=== PATIENT | female | born 1990 | race Caucasian/White ===

== ENCOUNTER → 2024-02-09 09:14 | Outpatient (REF) | payer BC, SELFPAY | LOC: PNTC 09:14 | PROVIDERS: ATTENDING PHYSICIAN Advanced Practice Midwife | DX: O09.529 Supervision of elderly multigravida, unspecified trimester (principal) | CPT/HCPCS: 76811 ==

== ENCOUNTER → 2024-04-05 09:24 | Outpatient (REF) | payer BC, SELFPAY | LOC: PNTC 09:24 | PROVIDERS: ATTENDING PHYSICIAN Obstetrics & Gynecology | DX: O09.519 Supervision of elderly primigravida, unspecified trimester (principal) | CPT/HCPCS: 76816 ==

== ENCOUNTER → 2024-04-12 09:18 | Outpatient (REF) | payer BC, SELFPAY ==
--- NOTE | 2024-04-12 10:21 | PN.DIAED06 ---
Meal Plan - Gestational
- Breakfast
Gestational Diabetes Meal Plan Name: 1800 calories
Breakfast - Total Carbohydrate (grams): 30
Breakfast - Starch Carbohydrate: 1
Breakfast - Fruit Carbohydrate: 0
Breakfast - Milk Carbohydrate: 1
Breakfast - Nonstarchy Vegetables: Yes
Breakfast - Meat/Protein: 1
Breakfast - Fat: 2
- Morning Snack
Morning Snack - Total Carbohydrate (grams): 30
Morning Snack - Starch Carbohydrate: 1
Morning Snack - Fruit Carbohydrate: 0
Morning Snack - Milk Carbohydrate: 1
Morning Snack - Nonstarchy Vegetables: Yes
Morning Snack - Meat/Protein: 0.5
Morning Snack - Fat: 0
- Lunch
Lunch - Total Carbohydrate (grams): 45
Lunch - Starch Carbohydrate: 2
Lunch - Fruit Carbohydrate: 1
Lunch - Milk Carbohydrate: 0
Lunch - Nonstarchy Vegetables: Yes
Lunch - Meat/Protein: 2
Lunch - Fat: 1
- Afternoon Snack
Afternoon Snack - Total Carbohydrate (grams): 30
Afternoon Snack - Starch Carbohydrate: 1
Afternoon Snack - Fruit Carbohydrate: 1
Afternoon Snack - Milk Carbohydrate: 0
Afternoon Snack - Nonstarchy Vegetables: Yes
Afternoon Snack - Meat/Protein: 1
Afternoon Snack - Fat: 0
- Dinner
Dinner - Total Carbohydrate (grams): 45
Dinner - Starch Carbohydrate: 2
Dinner - Fruit Carbohydrate: 0
Dinner - Milk Carbohydrate: 1
Dinner - Nonstarchy Vegetables: Yes
Dinner - Meat/Protein: 2
Dinner - Fat: 2
- Evening Snack
Evening Snack - Total Carbohydrate (grams): 30
Evening Snack - Starch Carbohydrate: 1
Evening Snack - Fruit Carbohydrate: 0
Evening Snack - Milk Carbohydrate: 1
Evening Snack - Nonstarchy Vegetables: Yes
Evening Snack - Meat/Protein: 1
Evening Snack - Fat: 1
--- NOTE | 2024-04-12 10:51 | PN.DIAED02 ---
Referral
Referred For: Gestational Diabetes Self-Management Training
PHI Release Authorization Form Signed: Yes
Care Plan
- Education Needs
Patient Education Needs: Preconception care//gestational diabetes management
Recommended Diabetes Training Program based on assessment: Gestational Diabetes Management
- Plan of Care
Plan of Care:
Met with Ann for new diagnosis GDM. EDC [birth year] male. 3 1/2 yr old and 1 yr old sons at home.Results of 3 hr OGTT: FBS= 81 mg/dl, 1 hr =237 mg/dk, 2 hr= 242 mg/dl and 3 hr= 113 mg/dl. Discussed what is occurring in her body and importance to keep
blood sugars well controlled to prevent complications (macrosomia, hypoglycemia) States her insurance prefers the One Touch verio glucometer and she is also awaiting approval for either the DexTransferWise G7 or [employer] Lisa CGM. Provided with and
instructions given on the One Touch. Aware of testing pattern, FBS and 2 hr pp each meal, as well as expected results, this information marker in the education booklet. Ann is aware to call the results into [employer] [facility] every
Tuesday, she has the phone number. Log sheet provided to record results. Good return demonstration with result of 123 mg/dl, 1 hr post breakfast of 1/2 wheat Ukrainian muffin w/ pb/sharp chees, 1 small chicken mikal and some cottage cheese. Discussed
macronutrient and impact each has on blood sugars. Discussed reading nutritional fact labels, total CHO in relation to serving size. 'Choose your Foods' booklet given for refernce. 5'#', 132 pre , provided w/ 1800 magui ADA GDM meal plan.
Suggest decreasing protein intact for breakfast, adding CHO to snacks (typically may have nuts, meal stick, cheese). She is aware to have protein and CHO with meals and snacks. Okay to reduce snack CHO allotment to 15 gm vs 30 gm. Aware to hold off
consuming fruit/fruit juice until noon. She does try to walk a few times a week and participates in a home Pilates challenge, about 15 days/month. She will wait an hour after exercise before checking her BS. Briefly discussed how CGMs works. She
will contact our office with any further needs.
== END ==
LOC: DES 09:18
PROVIDERS: ATTENDING PHYSICIAN Obstetrics & Gynecology; FAMILY PHYSICIAN Nurse Practitioner Family
DX: O24.419 Gestational diabetes mellitus in pregnancy, unspecified control (principal)
CPT/HCPCS: 99078

== ENCOUNTER → 2024-05-02 16:28 | Outpatient (REF) | payer BC, SELFPAY ==
[2024-05-02 15:12] LABS: % Basophils 0.2 % (0-2); % Eosinophils 0.8 % (0-6); % Lymphocytes 16.5 % (20.5-51.1); % Monocytes 7.4 % (1.7-9.3); % Neutrophils 74.1 % (42.2-75.2); Absolute Eosinophils 0.1 10^3/uL (0-0.7); Absolute Immature Granulocytes 0.1 10^3/uL (0-0.05); Absolute Lymphocytes 1.7 10^3/uL (1.2-3.4); Absolute Monocytes 0.8 10^3/uL (0.1-0.6); Absolute Neutrophils 7.7 10^3/uL (1.4-6.5); Hematocrit 25.3 % (37.0-47.0); Hemoglobin 8.3 g/dL (12.0-16.0); Mean Corp Hgb Conc. 32.8 g/dL (33.0-37.0); Mean Corpuscular Hgb 26.6 pg (27.0-31.0); Mean Corpuscular Volume 81.1 fL (81.0-99.0); Mean Platelet Volume 10.4 fL (7.4-10.4); Platelet Count 246 10^3/uL (130-400); Red Blood Cell Count 3.12 10^6/uL (4.20-5.40); Red Cell Dist. Width 13.9 % (11.5-14.5); White Blood Cell Count 10.3 10^3/uL (4.8-10.8)
== END ==
LOC: OIDL 16:28
PROVIDERS: ATTENDING PHYSICIAN Internal Medicine Hematology & Oncology
DX: D50.9 Iron deficiency anemia, unspecified (principal)
CPT/HCPCS: 85025

== ENCOUNTER → 2024-05-09 15:42 | Outpatient (REF) | payer BC, SELFPAY ==
[2024-05-09 14:56] LABS: % Basophils 0.3 % (0-2); % Eosinophils 0.8 % (0-6); % Immature Granulocytes 1.7 % (0-0.5); % Lymphocytes 15.5 % (20.5-51.1); % Monocytes 6.4 % (1.7-9.3); % Neutrophils 75.3 % (42.2-75.2); Absolute Eosinophils 0.1 10^3/uL (0-0.7); Absolute Immature Granulocytes 0.2 10^3/uL (0-0.05); Absolute Lymphocytes 1.7 10^3/uL (1.2-3.4); Absolute Monocytes 0.7 10^3/uL (0.1-0.6); Absolute Neutrophils 8.5 10^3/uL (1.4-6.5); Hematocrit 28.2 % (37.0-47.0); Mean Corp Hgb Conc. 31.9 g/dL (33.0-37.0); Mean Corpuscular Hgb 26.8 pg (27.0-31.0); Mean Corpuscular Volume 83.9 fL (81.0-99.0); Mean Platelet Volume 10.4 fL (7.4-10.4); Platelet Count 237 10^3/uL (130-400); Red Blood Cell Count 3.36 10^6/uL (4.20-5.40); Red Cell Dist. Width 16.3 % (11.5-14.5); White Blood Cell Count 11.3 10^3/uL (4.8-10.8)
== END ==
LOC: OIDL 15:42
PROVIDERS: ATTENDING PHYSICIAN Internal Medicine Hematology & Oncology
DX: D50.9 Iron deficiency anemia, unspecified (principal)
CPT/HCPCS: 85025

== ENCOUNTER → 2024-05-31 09:32 | Outpatient (REF) | payer BC, SELFPAY | LOC: PNTC 09:32 | PROVIDERS: ATTENDING PHYSICIAN Advanced Practice Midwife | DX: O09.529 Supervision of elderly multigravida, unspecified trimester (principal) | CPT/HCPCS: 76816 ==

== ENCOUNTER 2024-06-11 11:07 | Inpatient (IN) | payer BC, SELFPAY ==
[2024-06-11 11:34] VITALS: BP 110/64; BMI 25.9
[2024-06-11] MEDS: LR 1000 IV ×2 (12:16→19:19)
[2024-06-11] MEDS: CLEOCIN 50 IV ×2 (12:16→19:41)
[2024-06-11 12:27] LABS: % Basophils 0.1 % (0-2); % Eosinophils 0.6 % (0-6); % Immature Granulocytes 0.8 % (0-0.5); % Lymphocytes 16.9 % (20.5-51.1); % Monocytes 5.3 % (1.7-9.3); % Neutrophils 76.3 % (42.2-75.2); Absolute Eosinophils 0.1 10^3/uL (0-0.7); Absolute Immature Granulocytes 0.1 10^3/uL (0-0.05); Absolute Lymphocytes 1.3 10^3/uL (1.2-3.4); Absolute Monocytes 0.4 10^3/uL (0.1-0.6); Absolute Neutrophils 5.9 10^3/uL (1.4-6.5); Hematocrit 30.3 % (37.0-47.0); Hemoglobin 10.4 g/dL (12.0-16.0); Mean Corp Hgb Conc. 34.3 g/dL (33.0-37.0); Mean Corpuscular Hgb 29.4 pg (27.0-31.0); Mean Corpuscular Volume 85.6 fL (81.0-99.0); Nucleated Red Blood Cells % 0 %; Platelet Count 173 10^3/uL (130-400); Red Blood Cell Count 3.54 10^6/uL (4.20-5.40); Red Cell Dist. Width 19.5 % (11.5-14.5); White Blood Cell Count 7.7 10^3/uL (4.8-10.8)
[2024-06-11] MEDS: PITOCIN 30 UNITS/NSS 500 ML IV ×2 (14:39→20:43)
[2024-06-11] MEDS: SUBLIMAZE 100 MCG EPIDURAL (19:20)
[2024-06-11] MEDS: FENTANYL/BUPIVACAINE 100 EPIDURAL (19:21)
[2024-06-11] MEDS: MOTRIN 600 MG PO (23:49)
[2024-06-12] MEDS: TYLENOL 650 MG PO ×5 (03:55→22:50)
[2024-06-12 03:58] LABS: Hematocrit 27.5 % (37.0-47.0); Hemoglobin 9.4 g/dL (12.0-16.0)
[2024-06-12] MEDS: MOTRIN 600 MG PO ×2 (07:04→17:24)
[2024-06-12] MEDS: SENOKOT-S 1 TABLET PO (08:35)
[2024-06-12 13:50] LABS: Syphilis/T. pallidum Ab Reflex Negative (Negative)
[2024-06-13] MEDS: MOTRIN 600 MG PO (00:40)
[2024-06-13] MEDS: SENOKOT-S 1 TABLET PO (08:57)
[2024-06-13] MEDS: TYLENOL 650 MG PO (08:57)
== END 2024-06-13 14:32 | disposition home or self-care (01) | DRG 807 ==
LOC: LDRP 11:07
PROVIDERS: ADMITTING PHYSICIAN Advanced Practice Midwife
PROC: 10E0XZZ Delivery of Products of Conception, External Approach (ICD-10-PCS; 2024-06-11)
PROC: 0HQ9XZZ Repair Perineum Skin, External Approach (ICD-10-PCS; 2024-06-11)
DX: O98.82 Other maternal infectious and parasitic diseases complicating childbirth (principal); Z37.0 Single live birth; B95.1 Streptococcus, group B, as the cause of diseases classified elsewhere; Z3A.38 38 weeks gestation of pregnancy; O24.420 Gestational diabetes mellitus in childbirth, diet controlled; O99.02 Anemia complicating childbirth; D50.9 Iron deficiency anemia, unspecified; Z88.0 Allergy status to penicillin
CPT/HCPCS: 36415; 59025; 85014; 85018; 85025; 86780; 86850; 86900; 86901

== ENCOUNTER → 2024-06-25 11:13 | Outpatient (REF) | payer BC, SELFPAY | LOC: RAD 11:13 | PROVIDERS: ATTENDING PHYSICIAN Family Medicine; FAMILY PHYSICIAN Nurse Practitioner Family | DX: R05.3 Chronic cough (principal) | CPT/HCPCS: 71046 ==